=== PATIENT | male | born 1975 | race Two or more races ===

== ENCOUNTER 2023-06-14 07:27 | Day surgery (SDC) | payer BC ==
[~2023-06-14] VITALS: Ht 167.6 cm; Wt 72.6 kg
[~2023-06-14 07:27] MED LIST: METH-1181 PO; ROSU10TA16 PO; TAMS0.4C36 PO
[2023-06-14] MEDS ORDERED: MORPHINE SULFATE INJ 2 MG/ml SYRG IV PRN (08:00)
[2023-06-14] MEDS ORDERED: METOCLOPRAMIDE HCL 5MG/ml INJ 2ml VIAL IV PRN (08:00)
[2023-06-14] MEDS ORDERED: HYDROmorphone HCL 2 MG/ML VL/or syr IV PRN ×2 (08:00)
[2023-06-14] MEDS ORDERED: ceFAZolin 2 GM/D5W50ml 50 ML IV ONE (08:05)
[2023-06-14] MEDS ORDERED: PROPOFOL 10 MG/ML 20 ML IV ONE (08:32)
[2023-06-14] MEDS ORDERED: SODIUM CHLORIDE LOCK 20 ML ONE ×2 (08:32→08:43)
[2023-06-14] MEDS ORDERED: ONDANSETRON HCL 4 MG/2 ML VIAL ONE (08:32)
[2023-06-14] MEDS ORDERED: fentaNYL CITRATE 100 MCG/2 ML VL ONE (08:32)
[2023-06-14] MEDS ORDERED: DexAMETHasone SOD PHOS 10MG/1ML VIAL INJ ONE (08:32)
[2023-06-14] MEDS ORDERED: MIDAZOLAM HCL 2MG/2ML 2ml VIAL (1mg/ml) ONE (08:32)
[2023-06-14] MEDS ORDERED: MEPERIDINE HCL (50 MG/ML) 1 ML VIAL ONE (08:34)
[2023-06-14] MEDS ORDERED: KETAMINE 50mg/ML 10ml Vial 10 ML ONE (08:42)
[2023-06-14] MEDS ORDERED: BUPIVACAINE W/ EPINEPH 0.5% INJ 50ML MDV IJ ONE (10:28)
[2023-06-14] MEDS ORDERED: BUPIVACAINE HCL 50 ML ONE (10:28)
[2023-06-14 11:54] VITALS: TEMP 97.6
[2023-06-14 12:38] VITALS: BP 129/84; PULSE 68; RESP 21; O2SAT 98
== END 2023-06-14 12:50 | disposition home or self-care (01) ==
LOC: SUR 07:27
PROVIDERS: ATTEND Orthopaedic Surgery Sports Medicine
DX: M70.22 Olecranon bursitis, left elbow (principal); Z79.899 Other long term (current) drug therapy; Z98.890 Other specified postprocedural states
CPT/HCPCS: 24105; J0690; J1100; J2175; J2250; J2405; J2704; J3010; J3490